=== PATIENT | female | born 1990 | race American Indian/Alaskan Native ===

== ENCOUNTER 2016-09-01 07:59 | Inpatient (IN) | payer MEDICAID ==
[2016-09-01] MEDS ORDERED: LACTATED RINGERS 1,000 ML ONE (08:22)
[2016-09-01] MEDS ORDERED: PITOCin/NS 20 UNIT/1000ML DRIP 1,000 ML IV ONE (08:24)
[2016-09-01] MEDS ORDERED: PEPCID IV ONE ×2 (08:24→09:00)
[2016-09-01] MEDS ORDERED: BICITRA ONE (08:24)
[2016-09-01] MEDS ORDERED: REGLAN ONE (08:24)
--- NOTE | 2016-09-01 08:40 | Anesthesia Consultation ---
Anesthesia Consult and Med Hx Date of service: 09/01/16 - Airway Anesthetic Teeth Evaluation: Good ROM Head & Neck: Adequate Mental/Hyoid Distance: Adequate Mallampati Class: Class II Intubation Access Assessment: Probably Good - Pre-Operative Health Status ASA Pre-Surgery Classification: ASA2 Proposed Anesthetic Plan: General, Spinal - Pulmonary Hx Asthma: No - Cardiovascular System Hx Hypertension: No - Central Nervous System Hx Seizures: No Hx Psychiatric Problems: No - Endocrine Hx Renal Disease: No Hx Hypothyroidism: No Hx Hyperthyroidism: No - Hematic Hx Anemia: No Hx Sickle Cell Disease: No - Other Systems Hx Alcohol Use: No
--- NOTE | 2016-09-01 08:42 | Anesthesia Day of Surgery ---
Anesthesia Day of Surgery - Day of Surgery Patient Examined: Yes Patient H&P Reviewed: Yes Patient is NPO: (had water at 4 AM)
[2016-09-01] MEDS ORDERED: BICITRA PO ONE (08:47)
--- NOTE | 2016-09-01 08:56 | History and Physical Report ---
History of Present Illness Date of examination: 09/01/16 (jazzmine , breech) Date of admission: This is a 26 yo at Chief complaint: This is a 26 yo at 40 +4 weeks here for jazzmine. She has been jazzmine all night. She came in noted to be breech and complete byt the nurse. I rechecked patient and noted that she was 7cm/thick with presenting part butt. She was seen at 10 weeks in our clinic. She has a hx of HSV2+, anemia on iron, hx of headaches and nausea which resolved during . GBS neg, hx of trich. 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 denies: smoking - Obstetrical History Expected Date of Delivery: 08/28/16 Actual Gestation: 40 Week(s) 4 Day(s) : 3 Para: 2 Hx # Term Pregnancies: 2 Number of Pregnancies: 0 Spontaneous Abortions: 0 Induced : 0 Number of Living Children: 2 Medications and Allergies Allergies Allergy/AdvReac Type Severity Reaction Status Date / Time morphine Allergy Itching Verified 09/15/15 09:40 Home Medications Medication Instructions Recorded Confirmed Last Taken Type Clindamycin [Clindamycin CAP] 450 mg PO ONCE #30 capsule 09/15/15 Unknown Rx Ibuprofen [Motrin] 800 mg PO Q8HR PRN #15 tablet 09/15/15 Unknown Rx Doxylamine/Pyridoxine HCl 1 each PO Q6HR PRN #30 tablet. 02/05/16 Unknown Rx [Tay Valdovinos 10-10 mg Tablet] Nitrofurantoin [place]/M-Cryst 100 mg PO Q12HR #14 capsule 02/05/16 Unknown Rx [Macrobid CAP] Vit W-Ca,Fe,FA(<1 mg) 1 each PO QDAY #30 tablet 02/05/16 Unknown Rx [ Vitamins] Review of Systems All systems: negative - Vital Signs Vital signs: Vital Signs Pulse Pulse Ox 70 70 L 09/01/16 08:08 09/01/16 08:08 Temp Pulse Resp BP Pulse Ox 72 135/77 82 L 09/01/16 08:19 09/01/16 08:19 09/01/16 08:16 - Physical Exam Breasts: Positive: normal Cardiovascular: Regular rate, Normal S1, Normal S2, No murmurs Lungs: Positive: Clear to auscultation, Normal air movement Abdomen: Positive: normal appearance, soft, normal bowel sounds. Negative: distention, tenderness, guarding Genitourinary (Female): Positive: normal external genitalia, normal perenium Vagina: Positive: normal moisture Cervix: Negative: lesion Adnexa: both: normal Anus/Rectum: Positive: normal perianal skin Extremities: Positive: normal Deep Tendon Reflex Grade: Normal +2 - Obstetrical FHR: auscultation normal Uterine Contraction Monitor Mode: Palpation Cervical Dilatation: 7 Cervical Effacement Percentage: 60 station: -2 Uterine Contraction Pattern: Regular Results All other labs normal.
[2016-09-01] MEDS ORDERED: PITOCin/NS 20 UNIT/1000ML DRIP 1,000 ML IV NR (09:00)
[2016-09-01] MEDS ORDERED: LACTATED RINGERS 1,000 ML IV NR (09:00)
[2016-09-01 09:21] LABS: Basophils % (Auto) 0.2 % (0.0-1.8); Eosinophils % (Auto) 0.1 % (0.0-4.3); Hematocrit 33.1 % (30.3-42.9); Hemoglobin 10.6 gm/dl (10.1-14.3); Mean Corpuscular HGB Conc 32 % (30-34); Mean Corpuscular Volume 81 fl (79-97); Platelet Count 267 K/mm3 (140-440); Red Blood Count 4.09 M/mm3 (3.65-5.03); White Blood Count 11.6 K/mm3 (4.5-11.0)
[2016-09-01 09:22] LABS: Mean Corpuscular Hemoglobin 26 pg (28-32); Red Cell Distribution Width 20.7 % (13.2-15.2)
[2016-09-01] MEDS ORDERED: SUBLIMAZE ONE (09:33)
[2016-09-01] MEDS ORDERED: WATER FOR IRRIG STERILE IR ONE (09:35)
[2016-09-01] MEDS ORDERED: NACL 0.9% IR ONE (09:35)
[2016-09-01] MEDS ORDERED: ePHEDrine SULFATE ONE (09:48)
[2016-09-01] MEDS ORDERED: REGLAN IV ONE (10:00)
[2016-09-01] MEDS ORDERED: NACL 0.9% 1000 ML 2,000 ML ONE (10:34)
[2016-09-01] MEDS ORDERED: ANCEF/STERILE WATER 2 GM/20 ML 20 ML IV NR (11:00)
--- NOTE | 2016-09-01 11:02 | Operative Report ---
Operative Report Operative Report: Date of operation 08/22/2016 Diagnosis #1 Intrauterine gestation at 40+4 weeks in active labor #2 Breech presentation postop diagnoses Postop diagnosis #1-2 same as above #3 delivery of viable fetus male operation performed primary low segment transverse Surgeon :Dr. Rojas Anesthesia: spinal Estimated blood loss 400 mL drains Ambrosio catheter to bladder 200 mL clear yellow urine Operative findings A viable male with Apgars 8 and 8 was delivered weight 6 lbs. 8 oz. was delivered from a breech kraig breech presentation amnionic fluid was clear the uterus fallopian tubes and ovaries were normal second Description of the operation The patient was brought to the operating suite in stable condition with a spinal anesthesia O Willis and an indwelling catheter in place and the bladder next sentence the patient was placed supine in the operating room table and rolled to her left side with a wedge next sentence the abdomen was prepped and draped in an normal standard fashion for next sentence after testing with forceps to assure adequate anesthetic level the surgeon surgery was commenced since we had counseled the patient extensively regarding the risk of surgery including but not limited to stroke embolus phlebitis pain infection hemorrhage as well as injury to the infant and internal organs such as the bowel bladder blood vessels no kidneys ureters and pelvic organs The patient was aware of the postop morbidity issues and recovery time frames next sentence the patient was aware she can perform adhesions which can result in obstruction of loop of bowel or ureter or chronic pain And that she was aware that she should have hemorrhage and required blood transfusion the small chance of exposure to hepatitis or HIV disease. With the scalpel in a sterile skin incision was made dissection was carried out to the sharply with the to the subcutaneous tissues and fascia in a transverse plane with the scalpel electrocautery and curved Marina's scissors were used to fashion was sharply freed up superiorly and inferiorly from the underlying rectus muscles which were bluntly and sharply divided the peritoneum was entered carefully in a clear space with the curved hemostat the peritoneal incision was then extended vertically with the Metzenbaum scissors were placed. A bladder flap was created by incising transversely through the peritoneum and vesicouterine fold and then bluntly dissecting the bladder distally. With the scalpel a low transverse hysterotomy was commenced. The myometrium was scored with the scalpel and the uterine cavity was actually entered bluntly with a curved hemostat the period the uterine incision was then extended laterally with the die cut operator's fingers. An intrauterine hand was placed and the buttocks was lifted and delivered brought through the pelvis and the uterine incision with gentle pressure the head was also delivered after the arms the left and the right arms were delivered the nasopharynx and oropharynx was suctioned cord was double clamped and transected was then handed off to the nursery personnel Apgars were good at 88 and further cord blood was collected for routine testing IV Pitocin and antibiotics were also administered and approximately given previous to the case. The placenta was manually removed the uterine cavity was then curettaged which a dry sponge and freed of the remaining membranes. The edge of the uterine incision was grasped with Friend clamps with the massage and Pitocin the uterus began to firm up normally. The uterine incision was then closed in 2 layers of 0 Vicryl sutures. The first uterine suture was then placed in the endometrium and the myometrium the second suture placed through the endopelvic fascia and also reincorporated the bladder flap peritoneum. Peritoneal lavage was then performed at the incision the pelvis and gutters were irrigated and the suction and cleared of all blood clots and amniotic fluid. The pelvis and gutters were irrigated and suctioned and cleared of all blood clots and amniotic fluid. Uterine incision was then reinspected and assure hemostasis. The uterus tubes and ovaries were inspected and were normal. Once we were satisfied with hemostasis attention was then turned to closure of the abdomen incision. The fascia was closed with a PDS skin was closed with a subcuticular suture of a John needle Vicryl throughout followed by benzoin and Steri-Strips and Telfa dressing. The patient was removed was moved to the recovery room in stable condition with the Ambrosio catheter draining clear yellow urine instruments sponge and needle counts correct 2 and estimated blood loss was 400 mL's there were no complications
[2016-09-01] MEDS ORDERED: PHENERGAN PR PRN ×2 (11:14→12:00)
[2016-09-01] MEDS ORDERED: ZOFRAN IV PRN ×2 (11:14→12:00)
[2016-09-01] MEDS ORDERED: fentaNYL-BUPIV 2 MCG/ML-0.125% 100 ML EPIDURAL SCH (11:30)
[2016-09-01] MEDS ORDERED: TUCKS PAD TP PRN (12:00)
[2016-09-01] MEDS ORDERED: SODIUM CHLORIDE FLUSH SYRINGE 10 ML IV PRN (12:00)
[2016-09-01] MEDS ORDERED: PHENERGAN PO PRN (12:00)
[2016-09-01] MEDS ORDERED: LANSINOH TP PRN (12:00)
[2016-09-01] MEDS ORDERED: NARCAN 0.4 MG/1 ML IV PRN ×2 (12:00)
[2016-09-01] MEDS ORDERED: MYLICON PO PRN (12:00)
[2016-09-01] MEDS ORDERED: FLUARIX QUAD 2016-2017(36 MOS+) IM ONE (12:00)
[2016-09-01] MEDS ORDERED: SODIUM CHLORIDE FLUSH SYRINGE 10 ML IV NR (12:00)
[2016-09-01] MEDS: PITOCin/NS 20 UNIT/1000ML DRIP 1,000 ML IV SCH ×3 (12:05→21:46)
[2016-09-01] MEDS: TORADOL IV PRN ×2 (18:13→23:35)
[2016-09-02 00:19] LABS: Hematocrit 27.9 % (30.3-42.9)
[2016-09-02] MEDS: PERCOCET 5/325 PO PRN ×5 (01:01→20:09)
--- NOTE | 2016-09-02 09:03 | Progress Note ---
Assessment and Plan O; VSS AF PP H/H: 9.0/27.9 A: Stable POD #1 S/P primary C/S breech Abd Distention Anemia P: iron BID abd binder prune juice gas x ambulate in hallway Subjective - Subjective Date of service: 09/02/16 Patient reports: appetite normal, pain well controlled, ambulating normally, other (Tolerating CL diet w/o N/V), no voiding normally, no flatus : doing well, nursing well Objective - Vital Signs Latest vital signs: Vital Signs Temp Pulse Pulse Pulse Resp BP BP 09/02/16 08:00 98.8 F 83 18 119/68 09/02/16 04:00 99.8 F H 76 18 113/63 09/02/16 02:26 18 09/02/16 00:00 99.8 F H 83 18 123/56 09/01/16 21:42 20 09/01/16 20:05 20 09/01/16 20:00 99.0 F 81 18 139/79 09/01/16 18:13 20 09/01/16 16:25 99.2 F 86 20 125/63 09/01/16 12:35 20 119/54 09/01/16 12:00 97.7 F 59 L 16 109/54 09/01/16 11:40 56 L 18 16/55 09/01/16 11:30 56 L 14 110/52 09/01/16 11:15 56 L 15 113/50 09/01/16 11:10 59 L 18 107/40 09/01/16 11:03 60 14 116/56 09/01/16 11:00 97.5 F L 68 14 90/30 Pulse Ox 09/02/16 08:00 09/02/16 04:00 09/02/16 02:26 09/02/16 00:00 09/01/16 21:42 09/01/16 20:05 09/01/16 20:00 09/01/16 18:13 09/01/16 16:25 09/01/16 12:35 09/01/16 12:00 99 09/01/16 11:40 99 09/01/16 11:30 99 09/01/16 11:15 99 09/01/16 11:10 99 09/01/16 11:03 100 09/01/16 11:00 100 Intake and Output 09/01/16 09/02/16 09/02/16 22:59 06:59 14:59 Intake Total 1480 365 Output Total 800 300 Balance 680 65 Intake: IV 1000 125 PITOCin/NS 20 UNIT/1000ML 1000 125 DRIP 1,000 ML @ 250 mls/ hr IV TITR SUSY Rx#: [id number] Oral 480 Intake, Free Water 240 Output: Urine 800 300 Indwelling Catheter 800 300 Other: Total, Intake Amount 240 Total, Output Amount 300 100 - Exam Breasts: Present: deferred Lungs: Present: Normal air movement Abdomen: Present: normal appearance, soft, distention. Absent: tenderness Vulva: both: normal Uterus: Present: normal, firm, fundal height below umbilicus (3 below U, ML). Absent: bogginess, tenderness Extremities: Present: normal. Absent: edema Incision: Present: normal, dry, intact, dressed - Labs Labs: Abnormal lab results 09/01/16 09/01/16 Range/Units 08:38 23:45 WBC 11.6 H (4.5-11.0) K/mm3 Hgb 9.0 L (10.1-14.3) gm/dl Hct 27.9 L (30.3-42.9) % MCH 26 L (28-32) pg RDW 20.7 H (13.2-15.2) % Seg Neutrophils % 81.6 H (40.0-70.0) % Seg Neutrophils # 9.5 H (1.8-7.7) K/mm3
[2016-09-02] MEDS ORDERED: MYLICON PO PRN (10:00)
--- NOTE | 2016-09-02 10:07 | Progress Note ---
Subjective Date of service: 09/02/16 Interval history: 1st POD after Patient is in the bed, relatively comfortable. Pain is mostly controlled with pain meds. Epidural catheter has been removed earlier. Ambulated normally. No residual neurological deficit. No anesthesia complications Objective - Constitutional Vitals: Vital Signs - 12hr 09/02/16 09/02/16 09/02/16 00:00 02:26 04:00 Temperature 99.8 F H 99.8 F H Pulse Rate [ 83 76 From Monitor] Respiratory 18 18 18 Rate Blood Pressure 123/56 113/63 [Right Arm] 09/02/16 08:00 Temperature 98.8 F Pulse Rate [ 83 From Monitor] Respiratory 18 Rate Blood Pressure 119/68 [Right Arm] - Labs CBC & Chem 7: 09/01/16 23:45 Labs: Abnormal lab results 09/01/16 Range/Units 23:45 Hgb 9.0 L (10.1-14.3) gm/dl Hct 27.9 L (30.3-42.9) %
[2016-09-02] MEDS: MOTRIN PO PRN ×2 (10:22→18:35)
[2016-09-02] MEDS: FEOSOL PO SCH (22:34)
[2016-09-03] MEDS: PERCOCET 5/325 PO PRN ×5 (05:00→22:59)
[2016-09-03] MEDS: MILK OF MAGNESIA PO PRN ×2 (05:08→23:03)
[2016-09-03] MEDS ORDERED: BOOSTRIX IM ONE (06:00)
--- NOTE | 2016-09-03 09:22 | Progress Note ---
Assessment and Plan O: VSS AF PP H/H: 9.0/27.9 A: Stable POD #2 S/P primary C/S breech Nausea Anemia P: Zofran prn Subjective - Subjective Date of service: 09/03/16 Patient reports: appetite normal, voiding normally, pain well controlled, flatus , ambulating normally, other (c/o nausea. Tolerating regular diet since yesterday) : doing well, in NICU (transferred to NICU for increased respirations) Objective - Vital Signs Latest vital signs: Vital Signs Temp Pulse Resp BP 09/02/16 23:55 98.6 F 84 20 131/71 09/02/16 17:26 98.2 F 73 20 118/58 09/02/16 14:03 18 09/02/16 10:23 20 09/02/16 10:22 20 Intake and Output 09/02/16 09/03/16 09/03/16 22:59 06:59 14:59 Intake Total 480 480 Balance 480 480 Intake: Oral 480 480 Other: Total, Intake Amount 120 240 # Voids Void 1 1 - Exam Breasts: Present: deferred Lungs: Present: Normal air movement Abdomen: Present: normal appearance, soft, normal bowel sounds. Absent: distention, tenderness Vulva: both: normal Uterus: Present: normal, firm, fundal height below umbilicus. Absent: bogginess Extremities: Present: normal. Absent: edema Incision: Present: normal, dry, intact. Absent: dressed
[2016-09-03] MEDS: FEOSOL PO SCH ×2 (09:50→23:00)
[2016-09-03] MEDS ORDERED: FLUARIX QUAD 2016-2017(36 MOS+) IM ONE (12:00)
[2016-09-04] MEDS: MOTRIN PO PRN ×2 (04:31→23:16)
[2016-09-04] MEDS: FEOSOL PO SCH ×3 (10:00→23:12)
[2016-09-04] MEDS ORDERED: DULCOLAX PR PRN (12:40)
[2016-09-04] MEDS: PERCOCET 5/325 PO PRN (18:40)
[2016-09-05] MEDS: MOTRIN PO PRN (06:29)
--- NOTE | 2016-09-05 14:18 | Discharge Summary ---
Providers - Providers Date of Admission: 09/01/16 08:28 Date of discharge: 09/05/16 Attending physician: JOSE R BOB MD Primary care physician: MARY ANNE HUIZAR Hospitalization Reason for admission: active labor, IUP at term, other (malpresentation breech) Delivery: Procedure: primary low transverse Episiotomy: none Laceration: none Incision: normal, dry, intact Other procedures: none complications: none Discharge diagnosis: IUP at term delivered baby: female Condition at discharge: Good Disposition: DISCHARGED TO HOME OR SELFCARE Plan - Discharge Medications Prescriptions: Ferrous Sulfate [Feosol 325 MG tab] 325 mg PO BID #60 tablet Ibuprofen [Motrin] 800 mg PO Q8HR PRN #30 tablet PRN Reason: Pain Ondansetron [Zofran TAB] 4 mg PO Q8HR PRN #30 tablet PRN Reason: Nausea Vit-Fe Fumar-FA [ Vitamin] 1 tab PO QDAY #30 tablet oxyCODONE /ACETAMINOPHEN [Percocet 5/325] 1 tab PO Q6HR PRN #40 tablet PRN Reason: Pain - Provider Discharge Summary Activity: routine, no sex for 6 weeks, no heavy lifting 4 weeks, no strenuous exercise Diet: routine Additional instructions: [] Smoking cessation referral if applicable(refer to patient education folder for contact #) [] Refer to [facility]'s [facility] Booklet Call your doctor immediately for: * Fever > 100.5 * Heavy vaginal bleeding ( >1 pad per hour) * Severe persistent headache * Shortness of breath * Reddened, hot, painful area to leg or breast * Drainage or odor from incision. * Keep incision clean and dry at all times and follow doctor's instructions regarding bathing/showering - Follow up plan Follow up: MARY ANNE HUIZAR MD [Primary Care Provider] - JOSE R BOB MD [Staff Physician] - (RTO 2 weeks for incision check)
--- NOTE | 2016-09-05 14:21 | Procedure Note ---
OB Delivery Note - Delivery Date of Delivery: 09/01/16 (6-4oz male @ 1016) Surgeon: JOSE R BOB - Vaginal Delivery presentation: breech Intrapartum events: none Delivery monitor: external FHT, external uterine Route of delivery: other Delivery placenta: manual Delivery cord: 3 umbilical vessels Episiotomy: none Delivery laceration: none Anesthesia: other - A Infant Gender: Male
--- NOTE | 2016-09-05 14:46 | Progress Note ---
Assessment and Plan A: POD#3 s/p primary , delayed return of bowel function P: Routine care. Continue observation. Dulcolax suppository. Anticipate discharge in the AM. Subjective - Subjective Date of service: 09/04/16 Principal diagnosis: s/p primary section for breech Interval history: Note entered late due to other pt care needs but pt seen and examined on the morning of 09/04/16. Pt reports nausea with each meal but denies emesis. No bowel movement. Patient reports: voiding normally, flatus, appetite poor, nauseated, no dizzy ambulation, no bowel movement [place]: in NICU Objective - Vital Signs Latest vital signs: Vital Signs Temp Pulse Pulse Resp BP 09/05/16 07:40 98.9 F 76 20 120/54 09/05/16 06:29 18 09/05/16 00:40 98.6 F 62 20 118/62 09/04/16 23:16 18 09/04/16 18:40 20 09/04/16 15:55 98.8 F 79 18 133/81 Intake and Output 09/04/16 09/05/16 09/05/16 22:59 06:59 14:59 Intake Total 240 480 220 Balance 240 480 220 Intake: Oral 240 480 220 Other: Total, Intake Amount 240 240 220 # Voids Void 1 1 1 - Exam Breasts: Present: deferred Cardiovascular: Present: Regular rate Lungs: Present: Clear to auscultation Abdomen: Present: soft, distention (moderatle), abnormal bowel sounds ( hypoactive) Uterus: Present: fundal height below umbilicus Extremities: Present: normal Incision: Present: intact
[2016-09-05 17:28] VITALS: BP 128/70
== END 2016-09-05 18:47 | disposition home or self-care (01) | DRG 766 ==
LOC: TRG 07:59 → APU 08:28 → OB 12:58
PROVIDERS: ADMIT Obstetrics & Gynecology; ATTEND Obstetrics & Gynecology
PROC: 10D00Z1 Extraction of Products of Conception, Low, Open Approach (ICD-10-PCS; principal; 2016-09-01)
DX: O32.1XX0 Maternal care for breech presentation, not applicable or unspecified (principal); Z37.0 Single live birth; O99.02 Anemia complicating childbirth; D64.9 Anemia, unspecified; Z3A.40 40 weeks gestation of pregnancy; Z83.3 Family history of diabetes mellitus; Z82.49 Family history of ischemic heart disease and other diseases of the circulatory system; Z88.5 Allergy status to narcotic agent
CPT/HCPCS: 36415; 85014; 85018; 85025; 86850; 86900; 86901; 90471; 90686; 90715; 99211; G0008; G0463; J1885; J2405; J2590; J2765; J3010; J7030; J7120; Q0169

== ENCOUNTER 2016-09-16 13:30 | Inpatient (IN) | payer MEDICAID ==
--- NOTE | 2016-09-16 16:02 | Admit Criteria Form ---
Admission Criteria Documentation: FEVER Clinical Indications for Inpatient Care (Place 'X' for any and all applicable criteria): Ongoing inpatient care may be indicated for fever with ANY ONE of the following[ D] (5)(27)(28)(29)(30)(31): [ ]I. Bacteremia [ ]II. Evidence of significant systemic illness as indicated by ANY ONE of the following: [ ]a) Persistently high temperatures greater than 103.1 degrees F ( 39.5 degrees C) (oral) [ ]b) New-onset hypoxia [ ]c) Hemodynamic instability [ ]d) Mental status changes [ ]e) Decreased urine output due to developing renal insufficiency [ ]f) New focal neurologic deficit (eg, stroke) [ ]g) Seizures [ ]h) Rigors [ ]i) Dehydration or hypovolemia [ ]j) Inadequate oral intake [X ]III. Patient in the immediate postoperative period with ANY ONE of the following (E)(23)(24): [X ]a) Evidence of specific localizing infection requiring ongoing inpatient evaluation or treatment (eg,abscess, severe pneumonia, wound infection ) [ ]b) Known or suspected cause of fever requiring ongoing inpatient evaluation or treatment (eg, DVT) [ ]c) Evidence of malignant hyperthermia (eg, unexplained tachycardia and muscle rigidity after depolarizing muscular blocking agent or inhaled anesthetic agent) [ ]IV. Suspected cause requiring acute care (eg, endocarditis, meningitis) [ ]V. High suspicion of bacteremia as indicated by severe constitutional symptoms in patient at high risk as indicated by ANY ONE of the following: [ ]a) Immunocompromised state [D](22) [ ]b) Age <3 years or >65 years [ ]c) Severe comorbidities (eg, poorly controlled diabetes, severe COPD) [ ]. High suspicion for fungal infection as indicated by ANY ONE of the following (22)(25): [ ]a) Febrile neutropenia (WBC <500/mm3 (0.5 X 109/L)) for >4 days despite broad spectrum antibiotics [ ]b) Imaging findings suggestive of fungal infection [ ]c) Immunocompromised state [ ]d) Immunocompromised patient colonized with Aspergillus species [ ]VII. Evidence of infection of medical devices such as implanted catheters or exposed hardware [ ]VIII. Suspected neuroleptic malignant syndrome as evidenced by ALL of the following (15): [ ]a) Recent use of neuroleptic medication (eg, haloperidol, prochlorperazine, metoclopramide) [ ]b) New-onset muscle rigidity Extended stay beyond goal length of stay for primary condition may be needed until ALL of the following are present(16)(17)(18)(19)(20)(21): [ ]a) Temperature status acceptable as indicated by ANY ONE of the following: [ ]i) Temp <38.1C (100.5 F) (oral) [ ]ii) Temp as expected for disease process and care performable at next level of care [ ]b) Hemodynamic stability [ ]c) Cultures negative or infection identified and under adequate treatment [ ]d) Behavior or mental status abnormalities absent or manageable at lower level of care (Also use Mental Status Change Criteria Form) for further information. [ ]e) Medical comorbidities absent or manageable at a lower level of care The original [facility] content created by [facility] has been revised. The portions of the content which have been revised are identified through the use of italic text or in bold, and [facility] has neither reviewed nor approved the modified material. All other unmodified content is copyright [facility]. Please see references footnoted in the original [facility] edition 2016 Admission Criteria Met: Yes
[2016-09-16] MEDS ORDERED: DILAUDID PCA 6MG/30ML IV ONE (18:31)
[2016-09-16] MEDS ORDERED: DILAUDID ONE (18:32)
[2016-09-16] MEDS ORDERED: NARCAN 0.4 MG/1 ML IV PRN (18:59)
[2016-09-16] MEDS ORDERED: DILAUDID IV PRN (18:59)
--- NOTE | 2016-09-16 19:10 | History and Physical Report ---
History of Present Illness Date of examination: 09/16/16 Date of admission: 09/16/16 15:45 Chief complaint: incision draining pus History of present illness: Pt is a 26 year old -Armenian female s/p an urgent primary low transverse section on 09/01/16 secondary to breech presentation who presents today c/o 1 week of increased incisional pain, a foul odor coming from incision, and pus draining from the incision on the day of presentation. She also reports chills and subjective fever at home. 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: herpes, trichomonas (treated ) Family/Genetic History: diabetes, hypertension, stroke, cancer Social history: no significant social history - Obstetrical History : 3 Medications and Allergies Allergies Allergy/AdvReac Type Severity Reaction Status Date / Time morphine Allergy Itching Verified 09/15/15 09:40 Home Medications Medication Instructions Recorded Confirmed Last Taken Type Clindamycin [Clindamycin CAP] 450 mg PO ONCE #30 capsule 09/15/15 09/03/16 Unknown Rx Ibuprofen [Motrin] 800 mg PO Q8HR PRN #15 tablet 09/15/15 09/03/16 Unknown Rx Doxylamine/Pyridoxine HCl 1 each PO Q6HR PRN #30 tablet. 02/05/16 09/03/16 Unknown Rx [Tay Valdovinos 10-10 mg Tablet] Nitrofurantoin [place]/M-Cryst 100 mg PO Q12HR #14 capsule 02/05/16 09/03/16 Unknown Rx [Macrobid CAP] Vit W-Ca,Fe,FA(<1 mg) 1 each PO QDAY #30 tablet 02/05/16 09/03/1608/29 Rx [ Vitamins] Ondansetron [Zofran TAB] 4 mg PO Q8HR PRN #30 tablet 09/03/16 Unknown Rx Ferrous Sulfate [Feosol 325 MG tab] 325 mg PO BID #60 tablet 09/04/16 Unknown Rx Ibuprofen [Motrin] 800 mg PO Q8HR PRN #30 tablet 09/04/16 Unknown Rx Vit-Fe Fumar-FA [ 1 tab PO QDAY #30 tablet 09/04/16 Unknown Rx Vitamin] oxyCODONE /ACETAMINOPHEN [Percocet 1 tab PO Q6HR PRN #40 tablet 09/04/16 Unknown Rx 5/325] Active Meds: Active Medications Hydromorphone HCl (Dilaudid) 0.25 mg IV Q3H PRN PRN Reason: Pain, Moderate (4-6) Clindamycin HCl (Cleocin 900 Mg/50 Ml) mls @ 100 mls/hr IV Q8HR SUSY PRN Reason: Protocol Lactated Ringer's (Lactated Ringers) mls @ 150 mls/hr IV DIRECT SUSY Naloxone HCl (Narcan 0.4 Mg/1 Ml) 0.1 mg IV Q2MIN PRN PRN Reason: Res Rate </= 8 or 02 SAT < 92% Ondansetron HCl (Zofran) 4 mg IV Q8H PRN PRN Reason: N/V unrelieved by Reglan Oxycodone/Acetaminophen (Percocet 5/325) 2 tab PO Q4H PRN PRN Reason: Pain, Moderate (4-6) Review of Systems All systems: negative Constitutional: fever, chills Gastrointestinal: abdominal pain, no nausea, no vomiting - Vital Signs Vital signs: Vital Signs Temp Pulse Resp BP Pulse Ox 100.2 F H 100 H 18 144/86 100 09/16/16 14:47 09/16/16 14:47 09/16/16 14:47 09/16/16 14:47 09/16/16 14:47 Temp Pulse Resp BP Pulse Ox 100.8 F H 87 18 154/82 100 09/16/16 16:15 09/16/16 16:15 09/16/16 16:15 09/16/16 16:15 09/16/16 14:57 - Physical Exam Breasts: Positive: deferred Cardiovascular: Regular rate Lungs: Positive: Clear to auscultation Abdomen: Positive: soft, tenderness, abnormal bowel sounds (hypoactive ), other (incision draining purulent material from both skin edges ) Genitourinary (Female): Positive: normal external genitalia Uterus: Positive: normal size Extremities: Positive: normal Results Result Diagrams: 09/16/16 20:30 09/16/16 20:30 All other labs normal. Assessment and Plan A: Postoperative wound infection Obesity Hypokalemia Thrombocytopenia P: Admit for observation. Begin Gentamicin and Clindamycin Decompression of wound Wound care consult CT pelvis Closely monitor pt status.
[2016-09-16] MEDS: LACTATED RINGERS 1,000 ML IV SCH (20:30)
[2016-09-16 21:06] LABS: Basophils % (Auto) 0.3 % (0.0-1.8); Eosinophils % (Auto) 0.4 % (0.0-4.3); Hematocrit 30.7 % (30.3-42.9); Hemoglobin 9.7 gm/dl (10.1-14.3); Mean Corpuscular HGB Conc 32 % (30-34); Mean Corpuscular Volume 80 fl (79-97); Platelet Count 454 K/mm3 (140-440); Red Blood Count 3.84 M/mm3 (3.65-5.03); Red Cell Distribution Width 19.3 % (13.2-15.2); White Blood Count 9.6 K/mm3 (4.5-11.0)
[2016-09-16 21:08] LABS: Mean Corpuscular Hemoglobin 25 pg (28-32)
[2016-09-16 21:16] LABS: Anion Gap 21 mmol/L; Blood Urea Nitrogen 7 mg/dL (7-17); Calcium 8.5 mg/dL (8.4-10.2); Carbon Dioxide 22 mmol/L (22-30); Chloride 100.2 mmol/L (98-107); Glucose 134 mg/dL (65-100); Sodium 140 mmol/L (137-145)
[2016-09-16 21:36] LABS: Potassium 2.9 mmol/L (3.6-5.0)
[2016-09-16] MEDS: CLEOCIN 900 MG/50 mL 900 MG/50 ML BAG IV SCH (22:17)
[2016-09-16] MEDS: PERCOCET 5/325 PO PRN (22:17)
[2016-09-16] MEDS ORDERED: K-DUR PO ONE (22:30)
[2016-09-16] MEDS: GARAMYCIN IV SCH (23:08)
[2016-09-16] MEDS: NACL 0.9% IV SCH (23:08)
[2016-09-17] MEDS: ZOFRAN IV PRN (02:28)
[2016-09-17] MEDS: PERCOCET 5/325 PO PRN ×3 (02:54→16:05)
[2016-09-17] MEDS: CLEOCIN 900 MG/50 mL 900 MG/50 ML BAG IV SCH ×3 (06:05→21:52)
[2016-09-17] MEDS: LACTATED RINGERS 1,000 ML IV SCH ×3 (06:06→22:03)
[2016-09-17] MEDS: GARAMYCIN IV SCH ×3 (06:16→22:02)
[2016-09-17] MEDS: NACL 0.9% IV SCH ×3 (06:16→22:02)
--- NOTE | 2016-09-17 09:44 | Progress Note ---
Assessment and Plan A: Postoperative wound infection Obesity Hypokalemia- repleted P: Continue IV abx CT abdomen/pelvis Monitor clinically. Subjective - Subjective Date of service: 09/17/16 Principal diagnosis: s/p section, wound infection, obesity Interval history: Pt feeling better today. Incision continues to drain. No fever overnight. Patient reports: appetite normal, voiding normally, pain well controlled, flatus , ambulating normally, no bowel movement Objective - Vital Signs Latest vital signs: Vital Signs Temp Pulse Resp BP 09/17/16 04:00 98.2 F 76 20 114/71 09/17/16 00:00 99.6 F 93 H 20 133/73 09/16/16 20:30 20 09/16/16 20:00 98.2 F 85 18 142/76 09/16/16 16:15 100.8 F H 87 18 154/82 Intake and Output 09/16/16 09/17/16 09/17/16 22:59 06:59 14:59 Intake Total 170 1860 100 Output Total 600 900 Balance -430 960 100 Intake: IV 50 1500 100 CLEOCIN 900 MG/50 mL 900 50 50 mg In 50 ml @ 100 mls/hr IV Q8H [facility] Rx#:[id number] Garamycin 135 mg In NaCl 100 100 0.9% 100.000 ml @ 200 mls /hr IV Q8H S[facility] Rx#: [id number] Lactated Ringers 1,000 ml 1350 @ 150 mls/hr IV DIRECT S[facility] Rx#:[id number] Oral 120 360 Output: Urine 600 900 Void 600 900 Other: Total, Intake Amount 120 240 Total, Output Amount 600 900 Voiding Method Toilet Weight 88.904 kg - Exam Breasts: Present: deferred Cardiovascular: Present: Regular rate Lungs: Present: Clear to auscultation Abdomen: Present: soft (obese), tenderness Extremities: Present: normal Incision: Present: edematous, skin (draining pus at either end, right greater than left ) - Labs Labs: Abnormal lab results 09/16/16 09/16/16 Range/Units 20:30 20:30 Hgb 9.7 L (10.1-14.3) gm/dl MCH 25 L (28-32) pg RDW 19.3 H (13.2-15.2) % Plt Count 454 H (140-440) K/mm3 Potassium 2.9 L* (3.6-5.0) mmol/L Creatinine 0.5 L (0.7-1.2) mg/dL Glucose 134 H (65-100) mg/dL
--- NOTE | 2016-09-17 14:08 | Cat Scan Report ---
CT ABDOMEN AND PELVIS WITH CONTRAST INDICATION: Wound infection. Evaluate for pelvic abscess. Status post on 09/01/2016. COMPARISON: None similar. FINDINGS: Abdomen and pelvis CT performed following oral contrast and intravenous administration of 100 cc of Omnipaque 300. LUNG BASES: Minimal extreme left lung base scarring posteriorly. Slight nonspecific distal esophageal prominence. ABDOMEN: Right hepatic lobe approximately 18.5 cm in midclavicular length. Left hepatic lobe tip also touches the spleen in the left upper quadrant. Otherwise unremarkable liver, spleen, gallbladder, pancreas, right adrenal, non-aneurysmal abdominal aorta, IVC and non-hydronephrotic kidneys. An approximately 1.1 cm left lower renal cortical focus anteriorly measures approximately 60 HU as on delayed series 4, axial image 20. It is however isodense and not well seen on the portal venous phase with attenuation of approximately 70 HU in that expected region. Subtle hypodense prominence of the medial limb of the left adrenal also noted on axial image 25, series 2 measuring up to 6 mm. Few small, subcentimeter mesenteric and retroperitoneal lymph nodes. No ascites. Opacified GI tract nonobstructive. Normal appendix. Non-opacified colon with mild stool throughout. PELVIS: Intrinsic heterogeneity/air mixed with debris measuring approximately 4 x 3 cm noted within the uterus towards the fundus, axial series 2, image 70. Few small pelvic phleboliths. Unremarkable urinary bladder and nonopacified rectosigmoid. Small pelvic free fluid. Few small lymph nodes noted, though presumed reactive as approximately 2 x 1 cm along the right lateral pelvic wall, axial image 78, series 2. Small bilateral inguinal lymph nodes as well measuring up to 2.3 x 1.5 cm on the right, axial image 84, series 2. Small fat containing umbilical hernia with a transverse neck of approximately 1 cm suspected. Subcutaneous stranding/density about the umbilicus and also the anterior abdominal wall noted, more so infraumbilical, representing postsurgical changes with minimal postoperative fluid with intrinsic air also noted within the right lower quadrant subcutaneous plane measuring 3.3 x 2 cm on axial image 73, series 2. Unremarkable bones. CONCLUSION: 1. Intrauterine heterogeneity/air towards the fundus noted, as described. This is of uncertain clinical significance and not excluded abnormal/abscess in light of now approximately 2 weeks post surgery. Please correlate. 2. Expected postsurgical changes/stranding along the anterior abdominal wall with minimal subcutaneous fluid/air along the right lower quadrant pannus, as described. 3. Incompletely characterized approximately 1 cm left lower renal cortical hyperdense lesion, not clearly a simple cyst. Though may represent a hemorrhagic cyst, other possibilities, including a subtle neoplasm not entirely excluded at this time and may be better evaluated on a followup CT performed as dedicated renal mass protocol exam, as appropriate. 4. Few other incidental findings, including prominent/mildly enlarged liver, amongst others, as above. Thank you for the opportunity to participate in this patient's care.
[2016-09-17] MEDS: AMBIEN PO PRN (21:56)
[2016-09-18] MEDS: PERCOCET 5/325 PO PRN ×3 (04:44→16:40)
[2016-09-18] MEDS: CLEOCIN 900 MG/50 mL 900 MG/50 ML BAG IV SCH (05:41)
[2016-09-18] MEDS: GARAMYCIN IV SCH (07:22)
[2016-09-18] MEDS: NACL 0.9% IV SCH (07:22)
--- NOTE | 2016-09-18 08:20 | Progress Note ---
Assessment and Plan A: Postoperative wound infection, HD#3 Obesity Hypokalemia- repleted P: Continue IV abx CBC, CMP, HIV, Hemoglobin A1C Monitor clinical status. Subjective - Subjective Date of service: 09/18/16 Principal diagnosis: s/p section, wound infection, obesity Interval history: Pt feeling well this morning. Nausea overnight and decreased appetite. Patient reports: pain well controlled, flatus, appetite poor, ambulating normally, nauseated, no appetite normal, no bowel movement Objective - Vital Signs Latest vital signs: Vital Signs Temp Pulse Resp BP 09/18/16 04:15 98.2 F 67 20 142/77 09/18/16 00:00 98.4 F 75 20 148/88 09/17/16 20:05 76 18 09/17/16 20:00 97.8 F 56 L 18 125/74 09/17/16 15:47 98.0 F 76 18 106/60 09/17/16 12:13 98.8 F 78 18 110/68 Intake and Output 09/17/16 09/18/16 09/18/16 22:59 06:59 14:59 Intake Total 1980 1650 150 Output Total 1700 Balance 280 1650 150 Intake: IV 900 1650 150 CLEOCIN 900 MG/50 mL 900 50 50 50 mg In 50 ml @ 100 mls/hr IV Q8H [facility] Rx#:[id number] Garamycin 135 mg In NaCl 100 100 100 0.9% 100.000 ml @ 200 mls /hr IV Q8H [facility] Rx#: [id number] Lactated Ringers 1,000 ml 750 1500 @ 150 mls/hr IV DIRECT S[facility] Rx#:[id number] Oral 840 Intake, Free Water 240 Output: Urine 1700 Void 1700 Other: Total, Intake Amount 240 Total, Output Amount 800 Voiding Method Toilet - Exam Breasts: Present: deferred Cardiovascular: Present: Regular rate Lungs: Present: Clear to auscultation Abdomen: Present: soft, abnormal bowel sounds (hypoactive bowel sounds ) Uterus: Present: fundal height below umbilicus Extremities: Present: edema (trace) Incision: Present: dressed (dressing changed this morning by night nurse )
[2016-09-18 09:10] LABS: Basophils % (Auto) 0.4 % (0.0-1.8); Eosinophils % (Auto) 2.3 % (0.0-4.3); Hematocrit 28.7 % (30.3-42.9); Hemoglobin 9.2 gm/dl (10.1-14.3); Mean Corpuscular HGB Conc 32 % (30-34); Mean Corpuscular Volume 80 fl (79-97); Platelet Count 422 K/mm3 (140-440); Red Cell Distribution Width 19.4 % (13.2-15.2); White Blood Count 5.3 K/mm3 (4.5-11.0)
[2016-09-18 09:23] LABS: Alanine Aminotransferase 11 units/L (7-56); Albumin 3.1 g/dL (3.9-5); Albumin/Globulin Ratio 0.9 %; Alkaline Phosphatase 70 units/L (35-129); Anion Gap 18 mmol/L; Bilirubin,Total < 0.2 mg/dL (0.1-1.2); Blood Urea Nitrogen 4 mg/dL (7-17); Calcium 8.6 mg/dL (8.4-10.2); Carbon Dioxide 26 mmol/L (22-30); Chloride 104.9 mmol/L (98-107); Glucose 84 mg/dL (65-100); Sodium 145 mmol/L (137-145); Total Protein 6.5 g/dL (6.3-8.2)
[2016-09-18 09:25] LABS: Mean Corpuscular Hemoglobin 26 pg (28-32)
[2016-09-18 09:28] LABS: HIV-1 Antigen p24 Non React (Non React); HIVR-1/2 Ab Non React (Non React)
[2016-09-18] MEDS: LACTATED RINGERS 1,000 ML IV SCH ×2 (12:40→23:02)
--- NOTE | 2016-09-18 13:10 | Consultation ---
History of Present Illness - Reason for Consult Consult date: 09/18/16 wound infection - History of Present Illness Ms Paredes is a 26y/o AA female, , who is s/p urgent low transverse C- section on 09/01/2016 secondary to breech presentation. She now is readmitted to on 09/16 with a one-week history of flulike feeling, fever, chills, worsening abdominal pain, and evidence of a foul-smelling discharge from her C- section wound. She describes greenish colored pus. She has had continued purulent drainage from the right side of her incision. This area is somewhat tender as well. The patient is being seen by wound care. [place] dressing changes have been initiated. The patient denies any known chronic medical problems. Her was otherwise uneventful other than a history of vaginitis. Currently she has been noted with low-grade fever to 100.8 but otherwise stable vital signs. CBC includes a white count of 9600 with 69% segs. Hemoglobin is 9.7 with platelet count 454,000. Her initial potassium was low at 2.9 but now corrected to 4.0. Hemoglobin A1c is normal at 5.6. Liver profile is normal. HIV is negative. The patient underwent a CT of her abdomen and pelvis. There is evidence of a right lower abdominal wall cellulitis and superficial wound infection. The uterus is described with post changes. There is also a questionable left renal cyst noted. Present cultures of the wound showed no polys with mixed organisms to include gram-positive cocci in pairs and chains as well as gram-negative rods. Cultures to date show light growth of 2 different gram-negative rods. Anaerobic culture is negative. Ms Paredes is now currently on IV clindamycin and gentamicin. She is seen for further ID recommendations. Past History Social history: no significant social history Medications and Allergies Allergies Allergy/AdvReac Type Severity Reaction Status Date / Time morphine Allergy Itching Verified 09/15/15 09:40 Home Medications Medication Instructions Recorded Confirmed Last Taken Type Clindamycin [Clindamycin CAP] 450 mg PO ONCE #30 capsule 09/15/15 09/03/16 Unknown Rx Ibuprofen [Motrin] 800 mg PO Q8HR PRN #15 tablet 09/15/15 09/03/16 Unknown Rx Doxylamine/Pyridoxine HCl 1 each PO Q6HR PRN #30 tablet. 02/05/16 09/03/16 Unknown Rx [Diclegis 10-10 mg Tablet] Nitrofurantoin Mcdonough/M-Cryst 100 mg PO Q12HR #14 capsule 02/05/16 09/03/16 Unknown Rx [Macrobid CAP] Vit W-Ca,Fe,FA(<1 mg) 1 each PO QDAY #30 tablet 02/05/16 09/03/1608/29 Rx [ Vitamins] Ondansetron [Zofran TAB] 4 mg PO Q8HR PRN #30 tablet 09/03/16 Unknown Rx Ferrous Sulfate [Feosol 325 MG tab] 325 mg PO BID #60 tablet 09/04/16 Unknown Rx Ibuprofen [Motrin] 800 mg PO Q8HR PRN #30 tablet 09/04/16 Unknown Rx Vit-Fe Fumar-FA [ 1 tab PO QDAY #30 tablet 09/04/16 Unknown Rx Vitamin] oxyCODONE /ACETAMINOPHEN [Percocet 1 tab PO Q6HR PRN #40 tablet 09/04/16 Unknown Rx 5/325] Active Meds: Active Medications Hydromorphone HCl (Dilaudid) 0.25 mg IV Q3H PRN PRN Reason: Pain, Moderate (4-6) Clindamycin HCl (Cleocin 900 Mg/50 Ml) 900 mg in 50 mls @ 100 mls/hr IV Q8H [facility] PRN Reason: Protocol Last Admin: 09/18/16 05:41 Dose: 100 mls/hr Lactated Ringer's (Lactated Ringers) 1,000 mls @ 150 mls/hr IV DIRECT [facility] Last Admin: 09/17/16 22:03 Dose: 150 mls/hr Gentamicin Sulfate 135 mg/ (Sodium Chloride) 103.375 mls @ 200 mls/hr IV Q8H S[facility] PRN Reason: Protocol Last Admin: 09/18/16 07:22 Dose: 200 mls/hr Naloxone HCl (Narcan 0.4 Mg/1 Ml) 0.1 mg IV Q2MIN PRN PRN Reason: Res Rate </= 8 or 02 SAT < 92% Ondansetron HCl (Zofran) 4 mg IV Q8H PRN PRN Reason: N/V unrelieved by Scott Last Admin: 09/17/16 02:28 Dose: 4 mg Oxycodone/Acetaminophen (Percocet 5/325) 2 tab PO Q4H PRN PRN Reason: Pain, Moderate (4-6) Last Admin: 09/18/16 13:02 Dose: 2 tab Zolpidem Tartrate (Ambien) 10 mg PO QHS PRN PRN Reason: Insomnia Last Admin: 09/17/16 21:56 Dose: 10 mg Review of Systems Constitutional: fever (see discussion.) Physical Examination - Physical Exam Narrative exam: Obese female. No distress. HEENT: Pupils are equal reactive to light and accommodation. Conjunctiva clear. Oropharynx is normal with no evidence of oral candidiasis or pharyngitis. NECK: Supple. No enlargement of the thyroid gland. No significant cervical lymphadenopathy. No jugular venous distention at 30. LUNGS: Clear with no adventitious sounds. HEART: Regular rate. S1 and S2 are normal. There are no murmurs, gallops, clicks or rubs heard. ABDOMEN: Soft and nontender. Liver and spleen are not palpably enlarged or tender. No palpable masses. Bowel sounds are normoactive. Right abdominal macerated, dehisced wound site with purulent discharge easily expressed. Slight foul odor. EXTREMITIES: No rash, peripheral lymphadenopathy, clubbing or edema. SKIN: No other rash, ulcers or wounds. NEUROLOGIC: No focal findings. - Constitutional Vitals: Vital Signs Temp Pulse Resp BP Pulse Ox 98.6 F 76 20 106/60 100 09/18/16 12:42 09/18/16 12:42 09/18/16 12:42 09/18/16 12:42 09/16/16 14:57 Temperature -Last 24 Hours Temperature 98.6 F Temperature 98.9 F Temperature 98.2 F Temperature 98.4 F Temperature 97.8 F Temperature 98.0 F Results - Labs CBC & Chem 7: 09/18/16 08:40 09/18/16 08:40 Labs: Abnormal lab results 09/18/16 09/18/16 Range/Units 08:40 08:40 RBC 3.60 L (3.65-5.03) M/mm3 Hgb 9.2 L (10.1-14.3) gm/dl Hct 28.7 L (30.3-42.9) % MCH 26 L (28-32) pg RDW 19.4 H (13.2-15.2) % Lymph % (Auto) 35.4 H (13.4-35.0) % Mcdonough % (Auto) 7.9 H (0.0-7.3) % BUN 4 L (7-17) mg/dL Creatinine 0.5 L (0.7-1.2) mg/dL Albumin 3.1 L (3.9-5) g/dL - Imaging and Cardiology CT scan - abdomen: report reviewed Assessment and Plan Assessment: Ms Paredes is a 26y/o AA female, , who is s/p urgent low transverse C- section on 09/01/2016 secondary to breech presentation. She now is readmitted to on 09/16 with a one-week history of flulike feeling, fever, chills, worsening abdominal pain, and evidence of a foul-smelling discharge from her C- section wound. Antibiotics: Zosyn 4.5 g IV every 8 hour ( 09/18 - > s/p: Clindamycin 900 mg IV every 8 hour ( 09/16 - 09/18) Gentamicin 135 mg IV every 8 hour ( 09/16 - 09/18) Conclusions: 1. Lower abdominal wall infected wound with cellulitis/ R/O subcutaneous abscess - Suspect polymicrobial etiology to include anaerobes - Status post low transverse 09/01/2016 2. Hypokalemia - Corrected 3. R/O right renal cyst Recommendations: - Suggest therapy, pending final culture results, with IV Zosyn 4.5 g every 8 hours - Will stop IV clindamycin and gentamicin - Continue aggressive local wound care as you are. - Pending culture findings patient may be able to be followed on po Rx - Augmentin x 7 - 10 days time. - Would follow up on possible right renal cyst as an outpatient at a later time.
[2016-09-18] MEDS ORDERED: LACTATED RINGERS 1,000 ML IV SCH ×2 (13:17→14:00)
[2016-09-18] MEDS: NS IV SCH ×2 (15:20→23:03)
[2016-09-18] MEDS: ZOSYN IV SCH ×2 (15:20→23:03)
[2016-09-18] MEDS: AMBIEN PO PRN (20:03)
[2016-09-19] MEDS: PERCOCET 5/325 PO PRN ×4 (00:59→18:12)
[2016-09-19] MEDS: ZOSYN IV SCH ×3 (07:22→23:10)
[2016-09-19] MEDS: NS IV SCH ×3 (07:22→23:10)
[2016-09-19] MEDS: LACTATED RINGERS 1,000 ML IV SCH ×2 (10:16→21:01)
--- NOTE | 2016-09-19 13:26 | Progress Note ---
Assessment and Plan HD # 4 - with wound infection. Currently on Iv antibiotics. will start Labetolol po today Subjective - Subjective Date of service: 09/19/16 Principal diagnosis: s/p section, wound infection, obesity Interval history: pt without complaints Patient reports: appetite normal, voiding normally, pain well controlled Objective - Vital Signs Latest vital signs: Vital Signs Temp Pulse Pulse Resp BP 09/19/16 12:25 98.7 F 63 14 140/91 09/19/16 11:23 20 09/19/16 07:44 98.4 F 62 20 142/85 09/19/16 07:27 20 09/19/16 04:30 98.6 F 76 18 143/95 09/19/16 00:30 98.8 F 80 20 163/90 09/18/16 20:30 98.6 F 54 L 20 133/86 09/18/16 16:44 98.1 F 76 20 128/60 Intake and Output 09/18/16 09/19/16 09/19/16 22:59 06:59 14:59 Intake Total 300 1160 1400 Output Total 600 600 600 Balance -300 560 800 Intake: IV 300 800 400 Lactated Ringers 1,000 ml 300 700 300 @ 100 mls/hr IV DIRECT [facility] Rx#:[id number] ZOSYN/NS 4.5GM/100ML 4.5 100 100 g In 100 ml @ 200 mls/hr IV Q8HR [facility] Rx#:[id number] Oral 1000 Intake, Free Water 360 Output: Urine 600 600 600 Void 600 600 600 Other: Total, Intake Amount 1000 Total, Output Amount 600 600 600 Voiding Method Toilet Toilet - Exam Breasts: Present: deferred Cardiovascular: Present: Regular rate, Normal S1, Normal S2 Lungs: Present: Clear to auscultation Abdomen: Present: soft, other (dressing in place. pt followed by wound care) Vulva: both: normal Uterus: Present: normal, firm Extremities: Present: normal Deep Tendon Reflex Grade: Normal +2 Incision: Present: normal, dry, intact
[2016-09-19] MEDS: NORMODYNE PO SCH (13:33)
[2016-09-19] MEDS: DILAUDID IV PRN (15:11)
[2016-09-19] MEDS: FEOSOL PO SCH (21:40)
[2016-09-19] MEDS: AMBIEN PO PRN (21:40)
[2016-09-20] MEDS: NORMODYNE PO SCH ×2 (01:16→13:30)
[2016-09-20] MEDS: PERCOCET 5/325 PO PRN ×3 (07:10→22:07)
[2016-09-20] MEDS: NS IV SCH ×3 (07:11→23:04)
[2016-09-20] MEDS: ZOSYN IV SCH ×3 (07:11→23:04)
--- NOTE | 2016-09-20 07:17 | Progress Note ---
Assessment and Plan hospitalization secondary to wound infection- currently on iv antibiotics as per ID. Subjective - Subjective Date of service: 09/20/16 Principal diagnosis: s/p section, wound infection, obesity Interval history: pt without complaints Patient reports: appetite normal, voiding normally, pain well controlled : other Objective - Vital Signs Latest vital signs: Vital Signs Temp Pulse Pulse Pulse Resp BP BP 09/20/16 06:45 60 151/91 09/20/16 04:26 98.4 F 66 20 173/95 09/20/16 01:16 68 141/81 09/19/16 23:00 98.5 F 68 20 141/81 09/19/16 19:30 98.6 F 54 L 20 141/83 09/19/16 18:12 16 09/19/16 16:55 98.4 F 56 L 72 H 147/84 09/19/16 15:11 16 09/19/16 13:33 63 140/91 09/19/16 12:25 98.7 F 63 14 140/91 09/19/16 11:23 20 09/19/16 07:44 98.4 F 62 20 142/85 09/19/16 07:27 20 Intake and Output 09/19/16 09/20/16 09/20/16 22:59 06:59 14:59 Intake Total 1300 1753 Output Total 600 Balance 700 1753 Intake: IV 800 833 Lactated Ringers 1,000 ml 700 733 @ 100 mls/hr IV DIRECT [facility] Rx#:[id number] ZOSYN/NS 4.5GM/100ML 4.5 100 100 g In 100 ml @ 200 mls/hr IV Q8HR [facility] Rx#:[id number] Oral 500 920 Output: Urine 600 Void 600 Other: Total, Intake Amount 500 360 Total, Output Amount 600 Voiding Method Toilet Toilet # Voids Void 2 # Bowel Movements 0 - Exam Breasts: Present: deferred Cardiovascular: Present: Regular rate, Normal S1, Normal S2 Lungs: Present: Clear to auscultation Abdomen: Present: normal appearance, soft Uterus: Present: normal, firm Extremities: Present: normal Deep Tendon Reflex Grade: Normal +2 Incision: Present: skin , dressed (pt followed by wound nurse. )
[2016-09-20] MEDS: LACTATED RINGERS 1,000 ML IV SCH ×2 (08:01→18:08)
[2016-09-20] MEDS: ZOFRAN IV PRN (08:43)
[2016-09-20] MEDS ORDERED: DULCOLAX PR PRN (11:08)
[2016-09-20] MEDS: DILAUDID IV PRN (13:33)
--- NOTE | 2016-09-20 15:12 | Progress Note ---
Assessment and Plan Antibiotics: Zosyn 4.5 g IV every 8 hour ( 09/18 - > s/p: Clindamycin 900 mg IV every 8 hour ( 09/16 - 09/18) Gentamicin 135 mg IV every 8 hour ( 09/16 - 09/18) Ms Paredes is a 26y/o AA woman, , who is s/p urgent low transverse C- section on 09/01/2016 secondary to breech presentation. She now is readmitted to on 09/16 with a one-week history of flu like illness, fever, chills, worsening abdominal pain, and evidence of a foul-smelling discharge from her C- section wound. Conclusions: 1. Lower abdominal wall infected wound with cellulitis/ R/O subcutaneous abscess - Suspect polymicrobial etiology to include anaerobes - Status post low transverse 09/01/2016 2. Hypokalemia - Corrected 3. R/O right renal cyst Recommendations: - continue Zosyn 4.5 g every 8 hours while in the hospital - continue wound care as outpatient - can discharge on po Augmentin 785mg po Q12H x 7 - 10 days time. Subjective Date of service: 09/20/16 Principal diagnosis: s/p section, wound infection, obesity Interval history: Patient is in good spirits, she said her abdominal pain is better Objective - Constitutional Vitals: Vital Signs Selected Entries 09/20/16 09/20/16 09/20/16 11:44 13:30 13:33 Temperature 98.4 F Pulse Rate 80 Pulse Rate [ 54 L From Monitor] Respiratory 16 Rate Blood Pressure 139/83 Blood Pressure 101 Mean General appearance: Present: no acute distress, well-nourished - EENT Eyes: PERRL, EOM intact, no scleral icterus, no conjunctival injection ENT: hearing intact, clear oral mucosa, no oropharyngeal erythema - Neck Neck: supple, normal ROM - Respiratory Respiratory effort: normal Respiratory: bilateral: CTA - Breasts Breasts: deferred - Cardiovascular Rhythm: regular Heart Sounds: Present: S1 & S2 Extremities: no ischemia, pulses intact, No edema - Gastrointestinal General gastrointestinal: Present: soft, non-tender, normal bowel sounds, other (abdominal surgical site with dressings in place) Rectal Exam: deferred - Genitourinary Female genitourinary: deferred - Integumentary Integumentary: clear, warm, dry - Psychiatric Psychiatric: appropriate mood/affect - Labs CBC & Chem 7: 09/18/16 08:40 09/18/16 08:40 Labs: Microbiology 09/16/16 18:30 Incision Wound Culture - Final Klebsiella Pneumoniae Proteus Mirabilis 09/16/16 18:30 Incision Anaerobic Culture - Preliminary Laboratory Tests 09/18/16 09/18/16 08:40 08:40 Potassium 4.0 Creatinine 0.5 L Estimated GFR > 60 HIV 1&2 Antibody Rapid Non react HIV P24 Antigen Non react
[2016-09-20] MEDS: FEOSOL PO SCH (15:17)
--- NOTE | 2016-09-20 15:42 | Event Note ---
Date: 09/20/16 Wound grew out klebsiella pneumonia and proteus- not sensitive to augmentin. Consider diffenrent medication upon discharge
[2016-09-20] MEDS: AMBIEN PO PRN (22:07)
[2016-09-21] MEDS: FEOSOL PO SCH ×2 (01:30→09:09)
[2016-09-21] MEDS: NORMODYNE PO SCH ×3 (01:49→09:08)
[2016-09-21] MEDS: LACTATED RINGERS 1,000 ML IV SCH ×2 (05:05→14:30)
[2016-09-21] MEDS: NS IV SCH ×2 (06:47→14:29)
[2016-09-21] MEDS: ZOSYN IV SCH ×2 (06:47→14:29)
--- NOTE | 2016-09-21 07:53 | Progress Note ---
Assessment and Plan POD from c/sec aand improving wound infection with HTN 1. will continue IV abx 2. discuss with ID insensitivities of oral abx with new growth of klebsiella and Proteus 3. continue labetolol for BP control. PP 6 weeks refer to med consult 4. continue presnt mgt Subjective - Subjective Date of service: 09/21/16 Principal diagnosis: s/p section, wound infection, obesity Patient reports: appetite normal, voiding normally, pain well controlled, flatus , bowel movement [place]: doing well Objective - Vital Signs Latest vital signs: Vital Signs Temp Pulse Pulse Pulse Resp BP BP 09/21/16 05:10 52 L 140/70 09/21/16 04:30 98.6 F 52 L 18 140/70 09/21/16 01:49 83 126/66 09/21/16 00:00 98.6 F 83 22 126/66 09/20/16 18:04 20 09/20/16 15:39 98.3 F 70 14 136/81 09/20/16 13:33 16 09/20/16 13:30 80 139/83 09/20/16 11:44 98.4 F 54 L 18 139/83 09/20/16 07:53 98.3 F 57 L 14 140/83 Intake and Output 09/20/16 09/21/16 09/21/16 22:59 06:59 14:59 Intake Total 1300 1333 Output Total 500 Balance 800 1333 Intake: IV 800 833 Lactated Ringers 1,000 ml 600 733 @ 100 mls/hr IV DIRECT [facility] Rx#:[id number] ZOSYN/NS 4.5GM/100ML 4.5 200 100 g In 100 ml @ 200 mls/hr IV Q8HR [facility] Rx#:[id number] Oral 500 500 Output: Urine 500 Void 500 Other: Total, Intake Amount 500 500 Total, Output Amount 500 Voiding Method Toilet - Exam Breasts: Present: normal Cardiovascular: Present: Regular rate, Normal S1, Normal S2, No murmurs Lungs: Present: Clear to auscultation, Normal air movement Abdomen: Present: normal appearance, soft, normal bowel sounds. Absent: distention, tenderness, guarding Vulva: both: normal Uterus: Present: normal, firm. Absent: bogginess, tenderness Extremities: Present: normal (in dressing still seperation : deferred to wound care. )
--- NOTE | 2016-09-21 09:17 | Progress Note ---
Assessment and Plan Antibiotics: Zosyn 4.5 g IV every 8 hour ( 09/18 - > s/p: Clindamycin 900 mg IV every 8 hour ( 09/16 - 09/18) Gentamicin 135 mg IV every 8 hour ( 09/16 - 09/18) Ms Paredes is a 26y/o AA woman, , who is s/p urgent low transverse C- section on 09/01/2016 secondary to breech presentation. She now is readmitted to on 09/16 with a one-week history of flu like illness, fever, chills, worsening abdominal pain, and evidence of a foul-smelling discharge from her C- section wound. Conclusions: 1. Lower abdominal wall infected wound with cellulitis/ R/O subcutaneous abscess - Suspect polymicrobial etiology to include anaerobes - Status post low transverse 09/01/2016 -Klebsiella and proteus grew in wound, both sensitive to bactrim 2. Hypokalemia - Corrected 3. R/O right renal cyst Recommendations: - continue Zosyn 4.5 g every 8 hours while in the hospital - continue wound care as outpatient - on discharge give bactrim DS 1 tab po Q12H, flagyl 500mg po Q8H both x 10 days Subjective Date of service: 09/21/16 Principal diagnosis: s/p section, wound infection, obesity Interval history: Patient is ready to go home, she has no new complaints. Objective - Constitutional Vitals: Selected Entries 09/21/16 09/21/16 08:56 09:08 Temperature 98.7 F Pulse Rate [ 74 Right Radial] Blood Pressure 140/82 Blood Pressure 101 Mean General appearance: Present: no acute distress, well-nourished - EENT Eyes: PERRL, EOM intact, no scleral icterus, no conjunctival injection Ears: bilateral: normal - Neck Neck: supple, normal ROM, no enlarged thyroid - Respiratory Respiratory effort: normal Respiratory: bilateral: CTA - Breasts Breasts: deferred - Cardiovascular Rhythm: regular Heart Sounds: Present: S1 & S2 Extremities: no ischemia, pulses intact, No edema - Gastrointestinal General gastrointestinal: Present: soft, non-tender, normal bowel sounds, other (surgical site clean dry, no erythema) Rectal Exam: deferred - Genitourinary Female genitourinary: deferred - Integumentary Integumentary: clear, warm, dry, no jaundice, no rash - Musculoskeletal Musculoskeletal: strength equal bilaterally - Psychiatric Psychiatric: appropriate mood/affect, cooperative - Labs CBC & Chem 7: 09/18/16 08:40 09/18/16 08:40 Labs: Microbiology 09/16/16 18:30 Incision Wound Culture - Final Klebsiella Pneumoniae Proteus Mirabilis 09/16/16 18:30 Incision Anaerobic Culture - Preliminary Laboratory Tests 09/18/16 08:40 BUN 4 L Creatinine 0.5 L
[2016-09-21] MEDS: DILAUDID IV PRN (11:20)
--- NOTE | 2016-09-21 17:11 | Event Note ---
Patient resting in bed d/w ID that IV abx would cover and to discharge home with bactrim and flagyl for 10 days labetolol for HTN percocet and motrin for pain Feso4 for anemia f/u in 1 week in clinic
--- NOTE | 2016-09-21 17:16 | Discharge Summary ---
Providers - Providers Date of Admission: 09/17/16 09:35 Date of discharge: 09/21/16 Attending physician: MARY ANNE HUIZAR 09/18/16 09:40 Consult to Case Management [CONS] Routine Services Needed at Discharge: Home Health Services Manager Of Purchasing Notified:: case management Ex [id number] Additional Physician Instructions: Wound care and social service issues. 09/18/16 12:27 Consult to Physician [CONS] Routine Consulting Provider: JOANNE PEREZ Reason For Exam: polymicrobial wound infection, recs for PO tx Place consult to:: Shanelle Perez Notified:: Yes Phone number called:: [phone] Was contact made?: Yes If yes, spoke with:: Jackie Time called:: 12:35 Primary care physician: [employer]IST[employer] Hospitalization Reason for admission: other (wound cellulitis and abscess) Delivery: Procedure: section Incision: skin complications: wound infection Discharge diagnosis: other (IV abx for wound infection and send home with po abx ) Condition at discharge: Good Disposition: DISCHARGED TO HOME OR SELFCARE Plan - Provider Discharge Summary Activity: no sex for 6 weeks Instructions: routine Additional instructions: [] Smoking cessation referral if applicable(refer to patient education folder for contact #) [] Refer to [facility] Booklet Call your doctor immediately for: * Fever > 100.5 * Heavy vaginal bleeding ( >1 pad per hour) * Severe persistent headache * Shortness of breath * Reddened, hot, painful area to leg or breast * Drainage or odor from incision. * Keep incision clean and dry at all times and follow doctor's instructions regarding bathing/showering - Follow up plan
[2016-09-21 19:53] VITALS: BP 137/81
== END 2016-09-21 19:54 | disposition home or self-care (01) | DRG 776 ==
LOC: ED 13:30 → 3A 15:45 → OB 16:09 → OBSVTOIN 09-17 09:35
PROVIDERS: ADMIT Obstetrics & Gynecology; ATTEND Obstetrics & Gynecology
DX: O86.0 Infection of obstetric surgical wound (principal); L03.311 Cellulitis of abdominal wall; O99.215 Obesity complicating the puerperium; E66.9 Obesity, unspecified; O72.3 Postpartum coagulation defects; D69.6 Thrombocytopenia, unspecified; O90.89 Other complications of the puerperium, not elsewhere classified; E87.6 Hypokalemia; O16.5 Unspecified maternal hypertension, complicating the puerperium; Z68.32 Body mass index [BMI] 32.0-32.9, adult
CPT/HCPCS: 36415; 74177; 80048; 80053; 83036; 84132; 85025; 87075; 87076; 87116; 87186; 87806; G0378; J1170; J1580; J2405; J2543; J7120; Q9967

== ENCOUNTER 2017-10-29 07:30 | Inpatient (IN) | payer MEDICAID ==
--- NOTE | 2017-10-29 07:47 | Event Note ---
Date: 10/29/17 Patient Name: AUSTEN LUONG Date of : 86 Patient Status: Inpatient Attending Provider: JOSE R BOB Date: 10/29/17 06:55 Initialization Date: 10/29/17 06:55 History of Present Illness Date of examination: 10/29/17 Date of admission: 10/28/17 10:03 Chief complaint: scheduled repeat c/sec at 39 weeks and BTL History of present illness: This is a at 39 weeks EDC 11/05/17 here for scheduled csec and BTL. Past History Past Surgical History: section (x1 for breech ) Family/Genetic History: none Social history: . denies: smoking, alcohol abuse, prescription drug abuse - Obstetrical History Expected Date of Delivery: 11/05/17 Actual Gestation: 39 Week(s) 0 Day(s) : 4 Para: 3 Hx # Term Pregnancies: 0 Number of Pregnancies: 0 Spontaneous Abortions: 0 Induced : 0 Number of Living Children: 3 Medications and Allergies Allergies Allergy/AdvReac Type Severity Reaction Status Date / Time morphine Allergy Itching Verified 09/15/15 09:40 Home Medications Medication Instructions Recorded Confirmed Last Taken Type Clindamycin [Clindamycin CAP] 450 mg PO ONCE #30 capsule 09/15/15 09/21/16 Unknown Rx Ibuprofen [Motrin] 800 mg PO Q8HR PRN #15 tablet 09/15/15 09/21/16 09/16/16 09: 00 Rx Doxylamine Succinate/Vit B6 1 each PO Q6HR PRN #30 tablet. 02/05/16 09/21/16 Unknown Rx [Tay Valdovinos 10-10 mg Tablet] Nitrofurantoin [place]/M-Cryst 100 mg PO Q12HR #14 capsule 02/05/16 09/21/16 Unknown Rx [Macrobid CAP] Vit Calc,Iron,Folic 1 each PO QDAY #30 tablet 02/05/16 09/21/16 Rx [ Vitamins] Ondansetron [Zofran TAB] 4 mg PO Q8HR PRN #30 tablet 09/03/16 09/21/16 Unknown Rx Ferrous Sulfate [Feosol 325 MG tab] 325 mg PO BID #60 tablet 09/04/16 09/21/16 09/16/16 09:00 Rx Ibuprofen [Motrin] 800 mg PO Q8HR PRN #30 tablet 09/04/16 09/21/16 09/16/16 09: 00 Rx Vit-Fe Fumar-FA [ 1 tab PO QDAY #30 tablet 09/04/16 09/21/16 09:00 Rx Vitamin] oxyCODONE /ACETAMINOPHEN [Percocet 1 tab PO Q6HR PRN #40 tablet 09/04/1609/16/16 22:00 Rx 5/325] Active Meds: Active Medications Parenteral Electrolytes (Normosol-R Ph 7.4) 1,000 mls @ 2,250 mls/hr IV PREOP SUSY Stop: 10/30/17 06:27 Last Admin: 10/29/17 06:42 Dose: 2,250 mls/hr Oxytocin/Sodium Chloride (Pitocin/Ns 20 Unit/1000ml Drip) 20 units in 1,000 mls @ 0 mls/hr IV TITR SUSY Review of Systems All systems: negative - Vital Signs Vital signs: Vital Signs Temp Resp 98.3 F 20 10/28/17 11:14 10/28/17 11:14 Temp Pulse Resp BP Pulse Ox 98.6 F 87 16 125/62 100 10/29/17 05:53 10/29/17 06:55 10/29/17 05:53 10/29/17 05:53 10/29/17 06:55 - Physical Exam Breasts: Positive: normal Cardiovascular: Regular rate, Normal S1 Lungs: Positive: Clear to auscultation, Normal air movement Abdomen: Positive: normal appearance, soft, normal bowel sounds. Negative: distention, tenderness, guarding Genitourinary (Female): Positive: normal external genitalia, normal perenium Vulva: both: normal Uterus: Positive: normal size Anus/Rectum: Positive: normal perianal skin Extremities: Positive: normal Deep Tendon Reflex Grade: Normal +2 - Obstetrical FHR: category 2 Uterine Contraction Pattern: Irregular Results Result Diagrams: 10/29/17 05:50 Abnormal lab results 10/29/17 Range/Units 05:50 Hgb 9.8 L (10.1-14.3) gm/dl MCH 26 L (28-32) pg RDW 17.2 H (13.2-15.2) % [place] % (Auto) 7.5 H (0.0-7.3) % All other labs normal. Assessment and Plan A/P HD#1 scheduled repeat csec and BTL consent signed discussed r/b/a which include bleeding infection damage to pelvic and non pelvic organs risk of hysterectomy and , blood transfusion risk of chronic pain, risk of further surgeries, patient agrees and will proceed with repeat csec and btl all questions answered
[2017-10-29] MEDS ORDERED: NEO SYNEPHRINE/NS Syringe(OR USE) IV ONE ×2 (07:56→08:03)
[2017-10-29] MEDS ORDERED: NORMOSOL-R PH 7.4 1,000 ML IV SCH (08:00)
[2017-10-29] MEDS ORDERED: ZOFRAN ONE ×3 (08:36→09:19)
[2017-10-29] MEDS ORDERED: ASTRAMORPH PF 10MG/10ML ONE (08:42)
[2017-10-29] MEDS ORDERED: PEPCID IV NR (09:00)
[2017-10-29] MEDS ORDERED: REGLAN IV NR (09:00)
[2017-10-29] MEDS ORDERED: PITOCin/NS 20 UNIT/1000ML DRIP 20 UNITS/1,000 ML BAG IV SCH ×2 (09:00→10:00)
[2017-10-29] MEDS ORDERED: BICITRA PO NR (09:00)
[2017-10-29] MEDS ORDERED: NACL 0.9% IR ONE (09:09)
[2017-10-29] MEDS ORDERED: WATER FOR IRRIG STERILE IR ONE (09:11)
--- NOTE | 2017-10-29 09:25 | Operative Report ---
Operative Report Operative Report: DATE OF PROCEDURE:10/29/17 PRE-PROCEDURE DIAGNOSIS: A 27-year-old 4, para 3003 with history of previous section, declined vaginal after section, and undesired fertility. POST-PROCEDURE DIAGNOSIS: A 27-year-old 4, para 3003 with history of previous section, declined vaginal after section, and undesired fertility. PROCEDURE PERFORMED: section and Ludden tubal ligation. SURGEON: Zainab Rojas MD ANESTHESIA:Spinal ESTIMATED BLOOD LOSS: Approximately 700 cc FINDINGS:Male infant born weighing 6 pounds 7 oz with Apgars of 9 and 9. DESCRIPTION OF PROCEDURE: The patient was taken to the operating room and given general endotracheal anesthesia, and anesthesia was found to be adequate. The patient was prepped and draped in the usual sterile fashion. An elliptical incision was made over the previous keloid scar and removed. A Bovie was used to transect the subcutaneous tissue to the fascia, which was dissected laterally with curved Marina scissors. The Deion clamps were used to grasp the superior and inferior portions of the fascial incisions and subsequently dissected off with a Bovie and bluntly. The rectus abdominal muscles were divided in the midline. The Solo O retractor was placed in the incision. The vesicouterine peritoneum was identified, transected, creating the bladder flap. A scalpel was used to make a transverse incision in the low uterine segment and extended laterally with the bandage scissors. The head was delivered atraumatically. Mouth and nares were suctioned at the incision. The posterior shoulder was delivered followed by the anterior shoulder and entire body. The cord was clamped twice and cut in between. The was handed off to the awaiting blanket winder operator. The placental delivery was spontaneously intact 3-vessel cord. Twenty units of Pitocin in 1 liter of LR was given after placental delivery. The hysterotomy was repaired with 0 chromic in a running locked fashion. Hemostasis was assured. Tissel given Attention was turned to the right fallopian tube, which was carried to the fimbriated end. A window was created in mesosalpinx and 0 plain gut was used to create the Ludden tubal ligation. In similar fashion, the left fallopian tube was identified, carried to the fimbriated end. A window was created in the mesosalpinx. The 3-0 plain gut was used to create a Ludden tubal ligation. Hemostasis was assured. The pelvis was copiously irrigated with warm normal saline. Interceed was placed on the hysterotomy repair. The rectus abdominal muscles were reapproximated in midline with 2-0 chromic in a U-stitch. The fascia was reapproximated with 0 Vicryl in a running fashion. The skin was closed with 4-0 valery needle The patient tolerated the procedure and was taken to the recovery room in stable condition.
[2017-10-29] MEDS ORDERED: MORPHINE IV PRN ×3 (09:26→11:00)
[2017-10-29] MEDS ORDERED: ZOFRAN IV PRN (10:30)
[2017-10-29] MEDS ORDERED: MYLICON PO PRN (11:00)
[2017-10-29] MEDS ORDERED: NARCAN 0.4 MG/1 ML IV PRN (11:00)
[2017-10-29] MEDS ORDERED: TORADOL IV PRN (11:00)
[2017-10-29] MEDS ORDERED: NORCO 5/325 PO PRN (11:00)
[2017-10-29] MEDS ORDERED: PHENERGAN PR PRN (11:00)
[2017-10-29] MEDS ORDERED: TUCKS PAD TP PRN (11:00)
[2017-10-29] MEDS ORDERED: LANSINOH TP PRN (11:00)
[2017-10-29] MEDS ORDERED: ANUCORT-HC PR PRN (11:00)
[2017-10-29] MEDS ORDERED: SODIUM CHLORIDE FLUSH SYRINGE 10 ML IV PRN (11:00)
[2017-10-29] MEDS ORDERED: PHENERGAN PO PRN (11:20)
[2017-10-29] MEDS: D5LR 1,000 ML IV SCH (17:10)
[2017-10-29 21:42] LABS: Hematocrit 29.9 % (30.3-42.9); Hemoglobin 9.6 gm/dl (10.1-14.3)
[2017-10-29] MEDS ORDERED: MILK OF MAGNESIA PO PRN (22:00)
[2017-10-29] MEDS ORDERED: SENOKOT PO PRN (22:00)
[2017-10-29] MEDS: PERCOCET 5/325 PO PRN (23:57)
[2017-10-29] MEDS: MOTRIN PO PRN (23:57)
[2017-10-30] MEDS: D5LR 1,000 ML IV SCH (02:12)
[2017-10-30] MEDS ORDERED: BOOSTRIX IM ONE (06:00)
[2017-10-30] MEDS: MOTRIN PO PRN ×3 (06:09→18:07)
[2017-10-30] MEDS ORDERED: M-M-R II VACCINE SUB-Q ONE (11:00)
[2017-10-30] MEDS: PRENATAL VITAMIN PO SCH (12:12)
[2017-10-30] MEDS: FEOSOL PO SCH (12:12)
--- NOTE | 2017-10-30 18:33 | Progress Note ---
Assessment and Plan - Patient Problems (1) delivery delivered Current Visit: Yes Status: Acute Plan to address problem: Patient doing well Discharge home tomorrow Subjective - Subjective Date of service: 10/30/17 Interval history: Patient aware well. She is tolerating a regular diet and her pain is well- controlled. She reports being able to void after removal of her Ambrosio. Patient reports: appetite normal, voiding normally, pain well controlled [place]: doing well Objective - Vital Signs Latest vital signs: Vital Signs Temp Pulse Resp BP Pulse Ox 10/30/17 18:07 18 10/30/17 16:10 98.9 F 18 123/74 10/30/17 10:13 98.6 F 18 108/50 10/30/17 06:10 18 10/30/17 06:09 18 10/30/17 00:35 98.7 F 78 18 120/65 96 10/29/17 23:57 18 10/29/17 20:25 98.3 F 82 18 121/68 98 Intake and Output 10/30/17 10/30/17 10/30/17 06:59 14:59 22:59 Intake Total 1240 480 120 Output Total 600 800 Balance 640 -320 120 Intake: IV 1000 D5lr 1,000 ml @ 125 mls/ 1000 hr IV DIRECT SUSY Rx#: [id number] Oral 240 480 120 Output: Urine 600 800 Indwelling Catheter 600 Void 800 Other: Total, Intake Amount 240 120 120 Total, Output Amount 600 800 - Exam Abdomen: Present: normal appearance Uterus: Present: normal Incision: Present: normal - Labs Labs: Abnormal lab results 10/29/17 Range/Units 21:22 Hgb 9.6 L (10.1-14.3) gm/dl Hct 29.9 L (30.3-42.9) %
--- NOTE | 2017-10-30 18:35 | Discharge Summary ---
Providers - Providers Date of Admission: 10/29/17 07:30 Date of discharge: 10/31/17 Attending physician: JOSE R BOB MD Primary care physician: JOSE R BOB MD Hospitalization Reason for admission: section Delivery: Procedure: section, bilateral tubal ligation, repeat low transverse Incision: normal Discharge diagnosis: IUP at term delivered baby: male Hospital course: The patient was admitted for scheduled repeat delivery. Please see operative note for details of surgery. Her postoperative course is uneventful. Condition at discharge: Good Disposition: DC-01 TO HOME OR SELFCARE - Discharge Diagnoses (1) delivery delivered Status: Acute Plan - Discharge Medications Prescriptions: Docusate Sodium [Colace] 100 mg PO BID PRN #60 capsule PRN Reason: Constipation Ferrous Sulfate [Feosol 325 MG tab] 325 mg PO QDAY #30 tablet Ibuprofen [Motrin] 800 mg PO Q8HR PRN #60 tablet PRN Reason: Pain Oxycodone HCl/Acetaminophen [Percocet 7.5/325 mg] 1 each PO Q6HR PRN #45 tablet PRN Reason: Pain - Provider Discharge Summary Activity: no sex for 6 weeks, no heavy lifting 4 weeks, no strenuous exercise Diet: routine Instructions: routine Additional instructions: [] Smoking cessation referral if applicable(refer to patient education folder for contact #) [] Refer to [facility] Booklet Call your doctor immediately for: * Fever > 100.5 * Heavy vaginal bleeding ( >1 pad per hour) * Severe persistent headache * Shortness of breath * Reddened, hot, painful area to leg or breast * Drainage or odor from incision. * Keep incision clean and dry at all times and follow doctor's instructions regarding bathing/showering Scheduled follow-up in 2 weeks for an incision check - Follow up plan
[2017-10-30] MEDS: PERCOCET 5/325 PO PRN (19:52)
[2017-10-31] MEDS: PERCOCET 5/325 PO PRN ×2 (04:20→12:10)
[2017-10-31] MEDS: MOTRIN PO PRN (04:20)
[2017-10-31] MEDS: PRENATAL VITAMIN PO SCH (12:10)
[2017-10-31] MEDS: FEOSOL PO SCH (12:10)
[2017-10-31] MEDS ORDERED: BOOSTRIX IM ONE (13:49)
[2017-10-31 14:35] VITALS: BP 123/82
== END 2017-10-31 15:00 | disposition home or self-care (01) | DRG 766 ==
LOC: APU 07:30 → OB 12:51
PROVIDERS: ADMIT Obstetrics & Gynecology; ATTEND Obstetrics & Gynecology
PROC: 10D00Z1 Extraction of Products of Conception, Low, Open Approach (ICD-10-PCS; principal; 2017-10-29)
PROC: 0UB70ZZ Excision of Bilateral Fallopian Tubes, Open Approach (ICD-10-PCS; 2017-10-29)
PROC: 3E0234Z Introduction of Serum, Toxoid and Vaccine into Muscle, Percutaneous Approach (ICD-10-PCS; 2017-10-30)
DX: O34.211 Maternal care for low transverse scar from previous cesarean delivery (principal); Z30.2 Encounter for sterilization; Z23 Encounter for immunization; Z37.0 Single live birth; Z3A.39 39 weeks gestation of pregnancy; Z88.5 Allergy status to narcotic agent; O76 Abnormality in fetal heart rate and rhythm complicating labor and delivery
CPT/HCPCS: 36415; 59025; 85014; 85018; 88302; 90715; 96360; 96374; 99211; C9250; G0463; J1885; J2274; J2370; J2405; J7121; Q0169